=== PATIENT | female | born 1985 | race African-American/Black ===

== ENCOUNTER 2016-12-05 22:34 | Emergency (ER) | payer BC ==
[~2016-12-05] VITALS: Ht 165.1 cm; Wt 158.8 kg
[2016-12-05 22:54] VITALS: BP 139/81
[2016-12-05] MEDS ORDERED: CEPH500T PO (23:16)
--- NOTE | 2016-12-05 23:16 | PHYS DOC ---
Past Medical History Past Medical History: No Pertinent History Past Surgical History: No Surgical History Alcohol Use: None Drug Use: None Adult General Chief Complaint Chief Complaint: INSECT BITE [facility] HPI Patient is a 31 year old female presents to the emergency department stating that she thinks she was bit by a couple bugs. She states that she has an area on the back or left shoulder area under her left upper arm. She states the one on the back seems to have started draining within the last hour or so. She states the one on the anterior part of her left upper arm appears to have blister type areas. She denies any drainage or discharge coming from the site. Patient states her last tetanus shot was approximately 2 years ago. She denies any fever, chills or any nausea vomiting. She does state that occasionally her left hand goes numb and tingles. Review of Systems Review of Systems Constitutional: Denies fever or chills [] Eyes: Denies change in visual acuity, redness, or eye pain [] HENT: Denies nasal congestion or sore throat [] Respiratory: Denies cough or shortness of breath [] Cardiovascular: No additional information not addressed in HPI [] GI: Denies abdominal pain, nausea, vomiting, bloody stools or diarrhea [] : Denies dysuria or hematuria [] Musculoskeletal: Denies back pain or joint pain [] Integument: Denies rash or skin lesions. Redness to the left anterior upper arm , and a bug bite to the left shoulder. Neurologic: Denies headache, focal weakness or sensory changes [] Endocrine: Denies polyuria or polydipsia [] Allergies Allergies Allergies Coded Allergies Type Severity Reaction Last Updated Verified No Known Drug Allergies 12/05/16 No Physical Exam Physical Exam Constitutional: Well developed, well nourished, no acute distress, non-toxic appearance. [] HENT: Normocephalic, atraumatic, bilateral external ears normal, oropharynx moist, no oral exudates, nose normal. [] Eyes: PERRLA, EOMI, conjunctiva normal, no discharge. [] Neck: Normal range of motion, no tenderness, supple, no stridor. [] Cardiovascular:Heart rate regular rhythm Lungs & Thorax: No respiratory distress noted Skin: Warm, dry, no erythema, no rash. Patient with a rectangle area on her anterior left upper arm that appears to be red with a smaller square within the rectangle area that is tender hard with pustular type areas. Patient was noted to also have a area on the posterior shoulder that is red hard and tender that appears to be a bug bite. No drainage or discharge coming from either side at this time. Back: No tenderness Extremities: No tenderness, no cyanosis, no clubbing, ROM intact, no edema. Left radial pulse 2+ cap refill brisk less than 2 seconds. Patient with good case manager noted Neurologic: Alert and oriented X 3, normal motor function, normal sensory function, no focal deficits noted. [] Psychologic: Affect normal, judgement normal, mood normal. [] Current Patient Data Vital Signs Vital Signs Date Time Temp Pulse Resp B/P (MAP) Pulse Ox O2 Delivery O2 Flow Rate FiO2 12/05/16 22:54 98.2 94 20 100 Room Air 98.2 EKG EKG [] Radiology/Procedures Radiology/Procedures [] Course & Med Decision Making Course & Med Decision Making Pertinent Labs and Imaging studies reviewed. (See chart for details) Recommended warm moist packs to the left shoulder area. Recommended keeping the areas clean and dry and clean the sites twice a day with soap and water and applying antibiotic ointment. Patient will be placed on Keflex for an infection. Patient will be discharged home in stable condition recommended following up to primary care physician in the next 3-5 days. All questions and concerns was answered at patient's bedside. [] Dragon Disclaimer Dragon Disclaimer This electronic medical record was generated, in whole or in part, using a voice recognition dictation system. Departure Departure Impression: Primary Impression: Cellulitis Disposition: 01 HOME, SELF-CARE Condition: STABLE Patient Instructions: Cellulitis, [id number] Additional Instructions: Activity as tolerated. Antibiotics as prescribed. Keep the area clean and dry. Clean the site twice day with soap and water and apply antibiotic ointment to the area. Warm moist packs to the area several times a day. Follow-up primary care physician in the next 3-5 days. Return back to emergency department for signs and symptoms of become worse. Scripts Cephalexin (CEPHALEXIN) 500 Mg Tablet 1 TAB PO BID, #20 TAB Prov: YAHAIRA ALVARADO CRM ADMINISTRATOR 12/05/16 Problem Qualifiers Primary Impression: Cellulitis Site of cellulitis: unspecified site Qualified Codes: L03.90 - Cellulitis, unspecified YAHAIRA ALVARADO CRM ADMINISTRATOR Dec 05, 2016 23:16
== END 2016-12-05 23:50 | disposition home or self-care (01) ==
LOC: ER 22:34
DX: L03.114 Cellulitis of left upper limb (principal)
CPT/HCPCS: 99283